=== PATIENT | female | born 1975 | race Asian ===

== ENCOUNTER 2017-02-04 01:11 | Emergency (ER) | payer OTHER ==
[~2017-02-04] VITALS: Ht 152.4 cm; Wt 100.5 kg
[2017-02-04 02:26] VITALS: BP 128/77
== END 2017-02-04 02:46 | disposition home or self-care (01) ==
LOC: EMS 01:12
DX: M62.838 Other muscle spasm (principal); F41.9 Anxiety disorder, unspecified; F32.9 Major depressive disorder, single episode, unspecified; F15.10 Other stimulant abuse, uncomplicated; Z88.6 Allergy status to analgesic agent; Z88.8 Allergy status to other drugs, medicaments and biological substances
CPT/HCPCS: 99281

== ENCOUNTER 2017-12-15 04:19 | Emergency (ER) | payer OTHER ==
[~2017-12-15] VITALS: Ht 152.4 cm; Wt 98.6 kg
[2017-12-15 04:21] VITALS: BP 107/52
== END 2017-12-15 05:33 | disposition home or self-care (01) ==
LOC: EMS 04:20
DX: F41.9 Anxiety disorder, unspecified (principal); F32.9 Major depressive disorder, single episode, unspecified; F15.10 Other stimulant abuse, uncomplicated; Z88.6 Allergy status to analgesic agent; Z88.8 Allergy status to other drugs, medicaments and biological substances
CPT/HCPCS: 99284

== ENCOUNTER 2018-05-14 20:29 | Emergency (ER) | payer OTHER ==
[~2018-05-14] VITALS: Ht 152.4 cm; Wt 99.1 kg
[2018-05-14] MEDS ORDERED: OLAN5TAB2 PO (20:47)
[2018-05-14] MEDS ORDERED: ALBUTEROL SULFATE 2.5 MG/0.5 ML NEB SOLUTION NEB ONE (22:15)
[2018-05-14] MEDS ORDERED: IPRATROPIUM BROMIDE 0.5 MG/2.5 ML NEB SOLUTION NEB ONE (22:15)
[2018-05-14] MEDS ORDERED: KETOROLAC TROMETHAMINE 60 MG/2 ML VIAL IM ONE (22:15)
[2018-05-14] MEDS ORDERED: IBUPROFEN 800 MG TABLET PO ONE (22:30)
[2018-05-14 23:20] VITALS: BP 117/72
== END 2018-05-15 00:21 | disposition home or self-care (01) ==
LOC: EMS 20:30
DX: J98.01 Acute bronchospasm (principal); R07.89 Other chest pain; F41.9 Anxiety disorder, unspecified; F32.9 Major depressive disorder, single episode, unspecified; F15.90 Other stimulant use, unspecified, uncomplicated; Z90.721 Acquired absence of ovaries, unilateral; Z79.899 Other long term (current) drug therapy; Z88.6 Allergy status to analgesic agent; Z88.8 Allergy status to other drugs, medicaments and biological substances
CPT/HCPCS: 93005; 94640

== ENCOUNTER 2018-05-27 21:45 | Emergency (ER) | payer OTHER ==
[~2018-05-27] VITALS: Ht 152.4 cm; Wt 105.0 kg
[~2018-05-27 21:45] MED LIST: OLAN5TAB2 PO
[2018-05-27] MEDS ORDERED: CYCLOBENZAPRINE HCL 10 MG TABLET PO ONE (22:30)
[2018-05-27 22:44] LABS: BASOPHILS % (AUTO) 0.8 % (0.0-2.0); EOSINOPHILS % (AUTO) 5.8 % (1.0-6.0); HEMATOCRIT 39.5 % (36-46); LYMPHOCYTES # (AUTO) 2.7 K/uL (1.0-4.8); LYMPHOCYTES % (AUTO) 35.4 % (22.0-44.0); MEAN CORPUSCULAR HEMOGLOBIN 29.4 pg (26.0-34.0); MEAN CORPUSCULAR VOLUME 89 fL (80-100); MONOCYTES # (AUTO) 0.7 K/uL (0.1-1.0); MONOCYTES % (AUTO) 8.5 % (2.0-9.0); NEUTROPHILS # (AUTO) 3.8 K/uL (1.8-7.7); NEUTROPHILS % (AUTO) 49.5 % (40.0-70.0); PLATELET COUNT (AUTO) 293 K/uL (150-450); RED BLOOD CELL COUNT(AUTO) 4.44 MIL/uL (4.00-5.20); RED CELL DISTRIBUTION WIDTH 13.3 % (11.5-14.5)
[2018-05-27 22:50] LABS: ANION GAP 9 mmol/L (8-16); CALCIUM, TOTAL 8.4 mg/dL (8.8-10.5); CARBON DIOXIDE 27 mmol/L (22-29); CHLORIDE 104 mmol/L (98-107); CREATININE 0.78 mg/dL (0.60-1.30); GLOMERULAR FILTR. RATE CALC > 60 mL/min (>60); GLUCOSE,RANDOM 101 mg/dL (70-110); POTASSIUM 3.4 mmol/L (3.5-5.1); SODIUM SERUM 140 mmol/L (136-145); UREA NITROGEN, BLOOD 11 mg/dL (7-18)
[2018-05-27 22:58] LABS: ALANINE AMINOTRANSFERASE 17 U/L (12-78); ALBUMIN 3.5 g/dL (3.4-5.0); ALKALINE PHOSPHATASE 53 U/L (46-116); ASPARTATE AMINOTRANSFERASE 17 U/L (15-37); BILIRUBIN,TOTAL 0.3 mg/dL (0.1-1.0); TOTAL PROTEIN, SERUM 7.2 g/dL (6.4-8.2)
[2018-05-27 23:24] LABS: APPEARANCE,URINE CLEAR (CLEAR); BILIRUBIN,URINE NEGATIVE (NEGATIVE); GLUCOSE, URINE (UA) NEGATIVE (NEGATIVE); KETONES,URINE NEGATIVE (NEGATIVE); LEUKOCYTE ESTERASE ,URINE TRACE (NEGATIVE); NITRATE,URINE NEGATIVE (NEGATIVE); OCCULT BLOOD,URINE SMALL (NEGATIVE); PH,URINE 5.5 (5.0-8.0); PROTEIN,URINE NEGATIVE (NEGATIVE); UROBILINOGEN,URINE 0.2 mg/dL (<=1.0)
[2018-05-27 23:32] VITALS: BP 110/59
[2018-05-27 23:32] LABS: BACTERIA,URINE None Seen /HPF (None Seen); WBC,URINE 0-2 /HPF (0-5)
[2018-05-27 23:33] LABS: SQUAMOUS EPITHELIAL CELL,UR Moderate /LPF (None Seen)
[2018-05-28] MEDS ORDERED: ACETAMINOPHEN 325 MG TABLET PO ONE
== END 2018-05-28 00:24 | disposition home or self-care (01) ==
LOC: EMS 21:46
DX: R51 Headache (principal); R42 Dizziness and giddiness; J40 Bronchitis, not specified as acute or chronic; F32.9 Major depressive disorder, single episode, unspecified; F41.9 Anxiety disorder, unspecified; F15.90 Other stimulant use, unspecified, uncomplicated; Z88.6 Allergy status to analgesic agent; Z88.8 Allergy status to other drugs, medicaments and biological substances
CPT/HCPCS: 93005

== ENCOUNTER 2018-07-20 17:47 | Emergency (ER) | payer OTHER ==
[~2018-07-20] VITALS: Ht 152.4 cm; Wt 91.4 kg
[2018-07-20 19:30] VITALS: BP 118/72
== END 2018-07-20 19:32 | disposition home or self-care (01) ==
LOC: EMS 17:49
DX: F41.9 Anxiety disorder, unspecified (principal); F32.9 Major depressive disorder, single episode, unspecified; Z79.899 Other long term (current) drug therapy; Z88.8 Allergy status to other drugs, medicaments and biological substances

== ENCOUNTER 2018-08-13 02:33 | Emergency (ER) | payer OTHER ==
[~2018-08-13] VITALS: Ht 152.4 cm; Wt 90.9 kg
[2018-08-13 02:36] VITALS: BP 139/79
== END 2018-08-13 03:30 | disposition left against medical advice (07) ==
LOC: EMS 02:36
DX: F41.9 Anxiety disorder, unspecified (principal); Z53.21 Procedure and treatment not carried out due to patient leaving prior to being seen by health care provider

== ENCOUNTER 2019-02-01 07:15 | Emergency (ER) | payer OTHER ==
[~2019-02-01] VITALS: Ht 157.5 cm; Wt 81.8 kg
[2019-02-01] MEDS ORDERED: SODIUM CHLORIDE 0.9% 250 ML IV ONE (07:36)
[2019-02-01] MEDS ORDERED: SODIUM CHLORIDE 0.9% 1,000 ML IV ONE (07:45)
[2019-02-01 07:56] LABS: ANION GAP 9 mmol/L (8-16); CALCIUM, TOTAL 9.1 mg/dL (8.8-10.5); CARBON DIOXIDE 26 mmol/L (22-29); CHLORIDE 103 mmol/L (98-107); GLOMERULAR FILTR. RATE CALC > 60 mL/min (>60); GLUCOSE,RANDOM 80 mg/dL (70-110); POTASSIUM 3.7 mmol/L (3.5-5.1); SODIUM SERUM 138 mmol/L (136-145); UREA NITROGEN, BLOOD 11 mg/dL (7-18)
[2019-02-01 08:01] LABS: BASOPHILS % (AUTO) 0.8 % (0.0-2.0); EOSINOPHILS % (AUTO) 6.3 % (1.0-6.0); HEMATOCRIT 42.1 % (36-46); HEMOGLOBIN 13.4 g/dL (12.0-16.0); LYMPHOCYTES % (AUTO) 28.8 % (22.0-44.0); MEAN CORPUSCULAR HEMOGLOBIN 29.1 pg (26.0-34.0); MEAN CORPUSCULAR VOLUME 91 fL (80-100); MONOCYTES # (AUTO) 0.7 K/uL (0.1-1.0); MONOCYTES % (AUTO) 10.3 % (2.0-9.0); NEUTROPHILS # (AUTO) 3.7 K/uL (1.8-7.7); NEUTROPHILS % (AUTO) 53.8 % (40.0-70.0); PLATELET COUNT (AUTO) 313 K/uL (150-450); RED BLOOD CELL COUNT(AUTO) 4.62 MIL/uL (4.00-5.20); RED CELL DISTRIBUTION WIDTH 13.1 % (11.5-14.5)
[2019-02-01 08:08] LABS: HCG,QUANTITATIVE < 1 mIU/mL (0-6)
[2019-02-01 10:19] VITALS: BP 131/62
== END 2019-02-01 10:24 | disposition home or self-care (01) ==
LOC: EMS 07:17
DX: R42 Dizziness and giddiness (principal); F32.9 Major depressive disorder, single episode, unspecified; F41.9 Anxiety disorder, unspecified; F19.90 Other psychoactive substance use, unspecified, uncomplicated; Z98.51 Tubal ligation status; Z88.6 Allergy status to analgesic agent; Z88.8 Allergy status to other drugs, medicaments and biological substances
CPT/HCPCS: 36415; 80048; 84702; 85025; 93005; 96360; 96361; 99285; J7050

== ENCOUNTER 2019-03-02 09:23 | Emergency (ER) | payer OTHER ==
[~2019-03-02] VITALS: Ht 154.9 cm; Wt 90.9 kg
[2019-03-02 09:33] VITALS: BP 110/72
== END 2019-03-02 10:24 | disposition left against medical advice (07) ==
LOC: EMS 09:26
DX: R42 Dizziness and giddiness (principal); Z53.21 Procedure and treatment not carried out due to patient leaving prior to being seen by health care provider

== ENCOUNTER 2019-08-10 17:43 | Emergency (ER) | payer OTHER ==
[~2019-08-10] VITALS: Ht 154.9 cm; Wt 90.9 kg
[2019-08-10 21:30] VITALS: BP 111/72
== END 2019-08-10 21:51 | disposition home or self-care (01) ==
LOC: EMS 17:44
DX: J32.9 Chronic sinusitis, unspecified (principal); F41.9 Anxiety disorder, unspecified; F32.9 Major depressive disorder, single episode, unspecified; F15.90 Other stimulant use, unspecified, uncomplicated; Z98.51 Tubal ligation status; Z98.890 Other specified postprocedural states; Z88.6 Allergy status to analgesic agent

== ENCOUNTER 2019-10-01 01:52 | Emergency (ER) | payer OTHER ==
[~2019-10-01] VITALS: Ht 152.4 cm; Wt 70.5 kg
[2019-10-01] MEDS ORDERED: OLAN10TA3 PO (01:55)
[2019-10-01 02:23] VITALS: BP 120/70
== END 2019-10-01 02:42 | disposition home or self-care (01) ==
LOC: EMS 01:52
DX: F41.9 Anxiety disorder, unspecified (principal); F32.9 Major depressive disorder, single episode, unspecified; F15.90 Other stimulant use, unspecified, uncomplicated; Z88.6 Allergy status to analgesic agent

== ENCOUNTER 2020-02-05 22:40 | Emergency (ER) | payer OTHER ==
[~2020-02-05] VITALS: Ht 149.9 cm; Wt 63.6 kg
[~2020-02-05 22:40] MED LIST changes: +OLAN10TA3 PO; -OLAN5TAB2 PO
[2020-02-06 02:00] VITALS: BP 104/61
[2020-02-06] MEDS: ACETAMINOPHEN 500 MG TABLET PO ONE ×2 (02:07→02:16)
[2020-02-06] MEDS: IBUPROFEN 600 MG TABLET PO ONE ×2 (02:08→02:15)
== END 2020-02-06 02:38 | disposition home or self-care (01) ==
LOC: EMS 22:40
DX: J02.9 Acute pharyngitis, unspecified (principal); R59.0 Localized enlarged lymph nodes; Z20.828 Contact with and (suspected) exposure to other viral communicable diseases
CPT/HCPCS: 99283; U0003

== ENCOUNTER 2020-09-30 20:30 | Emergency (ER) | payer OTHER ==
[~2020-09-30] VITALS: Ht 152.4 cm; Wt 81.8 kg
[2020-09-30 21:40] VITALS: BP 145/72
[2020-09-30 21:43] LABS: GLUCOSE,POINT OF CARE 88 MG/DL (70-110)
== END 2020-09-30 21:40 | disposition home or self-care (01) ==
LOC: EMS 20:30
DX: R68.2 Dry mouth, unspecified (principal)
CPT/HCPCS: 82948; 99282

== ENCOUNTER 2021-07-21 17:43 | Emergency (ER) | payer OTHER ==
[~2021-07-21] VITALS: Ht 149.9 cm; Wt 72.7 kg
[2021-07-21 20:43] VITALS: BP 119/63
[2021-07-21 20:44] LABS: COVID AG,FIA SOURCE NASOPHARYNGEAL
== END 2021-07-21 20:51 | disposition home or self-care (01) ==
LOC: EMS 17:44
DX: R05.9 Cough, unspecified (principal); F41.9 Anxiety disorder, unspecified; F32.9 Major depressive disorder, single episode, unspecified; Z20.822 Contact with and (suspected) exposure to COVID-19; Z88.6 Allergy status to analgesic agent
CPT/HCPCS: 87426; 99283; U0003

== ENCOUNTER 2024-05-29 16:58 | Emergency (ER) | payer OTHER ==
[~2024-05-29] VITALS: Ht 152.4 cm; Wt 81.8 kg
[2024-05-29 17:17] VITALS: BP 114/69; PULSE 102; RESP 18; TEMP 98.1; O2SAT 99
== END 2024-05-30 01:01 | disposition left against medical advice (07) ==
LOC: EMS 16:58
DX: S31.159A Open bite of abdominal wall, unspecified quadrant without penetration into peritoneal cavity, initial encounter (principal); Z53.21 Procedure and treatment not carried out due to patient leaving prior to being seen by health care provider; W54.0XXA Bitten by dog, initial encounter; Y93.89 Activity, other specified; Y92.89 Other specified places as the place of occurrence of the external cause; Y99.8 Other external cause status

== ENCOUNTER 2025-06-30 21:07 | Emergency (ER) | payer OTHER ==
[~2025-06-30] VITALS: Ht 152.4 cm; Wt 81.8 kg
[2025-06-30 21:13] VITALS: BP 137/84; PULSE 115; TEMP 98.3; O2SAT 98
[2025-06-30 23:16] VITALS: RESP 16
== END 2025-06-30 23:18 ==
LOC: EMS 21:07
DX: S01.81XA Laceration without foreign body of other part of head, initial encounter (principal); F41.9 Anxiety disorder, unspecified; F32.A Depression, unspecified; Z88.6 Allergy status to analgesic agent; Z90.721 Acquired absence of ovaries, unilateral; Z98.51 Tubal ligation status; Y04.0XXA Assault by unarmed brawl or fight, initial encounter; Y93.89 Activity, other specified; Y92.89 Other specified places as the place of occurrence of the external cause; Y99.8 Other external cause status
CPT/HCPCS: 12011; 99283